=== PATIENT | female | born 1950 | race Asian ===

== ENCOUNTER 2017-05-07 03:55 | Inpatient (IN) | payer OTHER ==
[2017-05-07] VITALS (7 sets, daily range): BP systolic 108–149; BP diastolic 60–70; Ht 152.4 cm; Wt 61.2 kg
[~2017-05-07] VITALS: Ht 152.4 cm; Wt 61.2 kg
[2017-05-07 04:18] LABS: BASOPHIL % 0.3 % (0-2); PLATELET COUNT 173 x10^3mcL (130-400); RED CELL DISTRIBUTION WIDTH 13.6 % (11.5-14.5)
[2017-05-07 04:26] LABS: CALCIUM 7.8 mg/dL (8.5-10.1); CARBON DIOXIDE 22.7 mmol/L (21-32); CHLORIDE SERUM 107 mmol/L (98-107); CREATININE SERUM 0.8 mg/dL (0.6-1.0); GFR1 > 60 mL/min; GLUCOSE SERUM 181 mg/dL (74-106); POTASSIUM SERUM 3.4 mmol/L (3.5-5.1); SODIUM SERUM 141 mmol/L (136-145)
[2017-05-07 04:34] LABS: ALBUMIN 3.4 g/dL (3.4-5.0); ALKALINE PHOSPHATASE 75 U/L (46-116); ALT/SGPT 23 U/L (14-59); AST/SGOT 21 U/L (15-37); BILIRUBIN TOTAL 0.28 mg/dL (0.20-1.00); TOTAL PROTEIN, SERUM 6.7 g/dL (6.4-8.2)
[2017-05-07 07:05] LABS: MAGNESIUM 1.9 mg/dL (1.8-2.4); PHOSPHOROUS 2.7 mg/dL (2.5-4.9)
[2017-05-07 07:10] LABS: T3 TOTAL 0.94 ng/mL
[2017-05-07 07:58] LABS: FREE T4 1.03 ng/dL (0.76-1.46); FREE THYROXINE INDEX 2.3 ug/dL (1.4-4.5); T4(THYROXINE) 6.7 ug/dL (4.7-13.3)
[2017-05-07 11:17] LABS: UA SPECIFIC GRAVITY 1.015 (1.005-1.035); microscopic required? YES; urine erythrocyte 2+ (NEGATIVE)
[2017-05-08 05:48] VITALS: BP 116/60
[2017-05-08 06:37] LABS: CALCIUM 8.1 mg/dL (8.5-10.1); CARBON DIOXIDE 21.4 mmol/L (21-32); CREATININE SERUM 1.3 mg/dL (0.6-1.0); MAGNESIUM 1.8 mg/dL (1.8-2.4); PHOSPHOROUS 3.3 mg/dL (2.5-4.9); POTASSIUM SERUM 4.2 mmol/L (3.5-5.1)
[2017-05-08 06:44] LABS: BASOPHIL % 0.3 % (0-2); RED CELL DISTRIBUTION WIDTH 13.6 % (11.5-14.5)
[2017-05-08 07:18] LABS: PLATELET COUNT 128 x10^3mcL (130-400)
[2017-05-08 09:18] VITALS: BP 125/76
[2017-05-08 17:13] VITALS: BP 141/69
[2017-05-08 21:39] VITALS: BP 137/74
[2017-05-09 06:01] VITALS: BP 139/71
[2017-05-09 06:13] LABS: CALCIUM 8.5 mg/dL (8.5-10.1); CARBON DIOXIDE 24.2 mmol/L (21-32); CREATININE SERUM 1.4 mg/dL (0.6-1.0); POTASSIUM SERUM 3.8 mmol/L (3.5-5.1)
[2017-05-09 06:16] LABS: BASOPHIL % 0.5 % (0-2); PLATELET COUNT 136 x10^3mcL (130-400); RED CELL DISTRIBUTION WIDTH 13.8 % (11.5-14.5)
[2017-05-09 09:50] VITALS: BP 136/72
[2017-05-09] MEDS ORDERED: FLO4 PO (10:48)
[2017-05-09] MEDS ORDERED: ECO81 PO (10:50)
[2017-05-09] MEDS ORDERED: LIPI10 PO (10:50)
[2017-05-09] MEDS ORDERED: ZES10 PO (10:50)
[2017-05-09] MEDS ORDERED: ACETAMINOPHEN-H1 TA1 PO (10:51)
[2017-05-09] MEDS ORDERED: COL100 PO (10:51)
[2017-05-09] MEDS ORDERED: THERA TABS1 TAB PO (10:53)
[2017-05-09 13:03] VITALS: BP 136/72
== END 2017-05-09 14:16 | disposition home or self-care (01) | DRG 465 ==
LOC: ED 03:55 → MU 06:16 → DU 06:16 → MU 05-08 09:02
PROVIDERS: Emergency Medicine; ADMIT Family Medicine
DX: N20.2 Calculus of kidney with calculus of ureter (principal); N17.0 Acute kidney failure with tubular necrosis; D68.69 Other thrombophilia; E11.65 Type 2 diabetes mellitus with hyperglycemia; E11.51 Type 2 diabetes mellitus with diabetic peripheral angiopathy without gangrene; E87.8 Other disorders of electrolyte and fluid balance, not elsewhere classified; E87.6 Hypokalemia; D64.9 Anemia, unspecified; I10 Essential (primary) hypertension; E83.51 Hypocalcemia; R31.9 Hematuria, unspecified; Z87.442 Personal history of urinary calculi; Z68.26 Body mass index [BMI] 26.0-26.9, adult
CPT/HCPCS: 82962; 83880; 84439; G0480; J1885; J2270; J2405; J7030; Q0092; Q9967